=== PATIENT | female | born 1960 | race Caucasian/White ===

== ENCOUNTER 2024-02-12 19:54 | Emergency (ER) | payer MEDICARE, SELFPAY ==
[2024-02-12 20:03] VITALS: BP 179/97
--- NOTE | 2024-02-12 21:26 | ED.GENMED ---
History of Present Illness
General
Chief Complaint: Fall
Time Seen by Provider: 02/12/24 20:51
History of Present Illness
History of Present Illness:
63-year-old female presents the emergency department for evaluation of mild headache and left shoulder pain after mechanical fall at work. Fell onto her left side with positive head strike. She is on Coumadin and full dose aspirin. Denies chest
pain or shortness of breath
Past History
Past History
ED Past Medical History: Asthma, COPD, CVA, HTN, Hypercholesterolemia, Psychiatric and Other
ED Past Surgical History: Other ([place] tooth extraction)
Social History
Tobacco: Former smoker
Alcohol: Daily (wine 1/2 bottle)
Drug: None
Personal:
Living: with family (daughter)
Employment: Employed
Family History
Family History: Other (reviewed and noncontributory)
Review of Systems
Review of Systems
Allergies reviewed?: Yes
All Other Systems: ROS reviewed and negative except as documented in HPI and ROS
Phy Exam
Physical Exam
Physical Exam:
GEN: Well appearing, NAD, WDWN
HEENT: Normocephalic and atraumatic, no midline cervical spine tenderness, normal cervical range of motion bilaterally oral mucosa moist, no scleral icterus
Cardiac: Regular rate
Lung: No respiratory distress, no tachypnea
MSK: No gross deformity or injuries, mild left shoulder bony tenderness, no deformity
Skin: Good color, no pallor or jaundice, no rashes
Neuro: AO x3, moves all extremities freely
Psych: Calm, cooperative
Course
Orders/Labs/Results
Orders:
Orders
02/12/24 20:07
CT Cervical Spine W/o Iv Contr Urgent
Comment:
Reason For Exam: fall
CT Head W/o Iv Contrast Urgent
Comment:
Reason For Exam: fall
02/12/24 21:12
CR Shoulder, Trauma - Left Urgent
Reason For Exam: fall
Vital Signs
Initial and Last Documented VS:
Initial Vital Signs
Temp Pulse Resp BP Pulse Ox
98.1 F 69 14 179/97 99
02/12/24 20:03 02/12/24 20:03 02/12/24 20:03 02/12/24 20:03 02/12/24 20:03
Last Documented Vital Signs
Temp Pulse Resp BP Pulse Ox
98.1 F 69 14 179/97 99
02/12/24 20:03 02/12/24 20:03 02/12/24 20:03 02/12/24 20:03 02/12/24 20:03
MDM/Problems Addressed
MDM/Problems Addressed:
Imaging unremarkable, patient discharged in stable condition
*Critical Care Note
Total Time (30-74mins, 75-104mins- exclusive of procedures): Not Applicable
ED Attending Note
-
Portions of this chart may have been created with voice recognition software.� Occasional wrong word or��sound alike� substitutions may have occurred due to the inherent limitations of voice recognition software.
Discharge Plan
Departure
Patient Disposition: Home (Routine Discharge)
Date of Disposition: 02/12/24
Time of Disposition: 21:26
Patient with high blood pressure during this ER visit?: No
Discharge Problem:
Fall, Contusion of left shoulder
Instructions: Head Injury in Adults (DC)
Prescriptions:
No Action
simvastatin 20 MG tablet
40 mg PO QPM
fluticasone propionate [Flovent HFA] 1 PUFF HFA aerosol inhaler
2 puff inhalation R BID
fluticasone propionate 1 SPRAY spray,suspension
1 spray intranasal DAILY PRN (Reason: Allergies)
metoprolol succinate 50 MG tablet extended release 24 hr
25 mg PO QPM
albuterol sulfate [ProAir HFA] 1 PUFF HFA aerosol inhaler
2 puff inhalation R Q4HPRN PRN (Reason: sob/wheezing)
cholecalciferol (vitamin D3) 2,000 UNITS tablet
See Rx Instructions .ROUTE .COMPLEX
Rx Instructions:
5,000 units orally Friday, Friday, Friday
B complex-vitamin C-folic acid 0.8 mg Tablet
1 tab PO DAILY
vitamin B complex-vit B12
1 dose PO DAILY
lisinopril 5 mg Tablet
5 mg PO DAILY
aspirin 81 MG tablet,delayed release (DR/EC)
325 mg PO DAILY
Referrals:
NONE,* [Family Provider] -
Interventions
Interventions:
*Risk Screen - Suicide Last Done: 02/12/24 20:03
*General Assessment Last Done: 02/12/24 20:03
*Neglect/Abuse Screening Last Done: 02/12/24 20:03
ED- Fall Risk Assessment Last Done: 02/12/24 21:36
*ED COVID-19 Vaccine History Last Done: 02/12/24 20:03
*Nursing Disposition Last Done: 02/12/24 21:36
ED-Musculoskeletal Assessment Last Done: 02/12/24 21:18
ED- Neurological Assessment Last Done: 02/12/24 21:18
ED-Skin Assessment Last Done: 02/12/24 21:18
Discharge Date and Time
Discharge Date/Time: 02/12/24 21:38
Print Language: SINHALA
== END 2024-02-12 21:38 | disposition home or self-care (01) ==
LOC: EMR 19:54
PROVIDERS: EMERGENCY PHYSICIAN Emergency Medicine
DX: S40.012A Contusion of left shoulder, initial encounter (principal); W19.XXXA Unspecified fall, initial encounter; Y99.0 Civilian activity done for income or pay; E78.00 Pure hypercholesterolemia, unspecified; I10 Essential (primary) hypertension; J44.89 Other specified chronic obstructive pulmonary disease; Z86.73 Personal history of transient ischemic attack (TIA), and cerebral infarction without residual deficits; Z79.01 Long term (current) use of anticoagulants; Z79.82 Long term (current) use of aspirin; Z87.891 Personal history of nicotine dependence
CPT/HCPCS: 99284; 70450; 72125; 73030

== ENCOUNTER 2024-02-22 14:36 | Emergency (ER) | payer MEDICARE, SELFPAY ==
[2024-02-22 14:41] VITALS: BP 159/88
[2024-02-22] MEDS: ADACEL 0.5 ML IM (15:35)
[2024-02-22 15:40] LABS: % Basophils 1.2 % (0-2); % Eosinophils 7.1 % (0-6); % Immature Granulocytes 0.4 % (0-0.5); % Lymphocytes 20.5 % (20.5-51.1); % Monocytes 8.3 % (1.7-9.3); % Neutrophils 62.5 % (42.2-75.2); Absolute Basophils 0.1 10^3/uL (0-0.2); Absolute Eosinophils 0.6 10^3/uL (0-0.7); Absolute Lymphocytes 1.7 10^3/uL (1.2-3.4); Absolute Monocytes 0.7 10^3/uL (0.1-0.6); Absolute Neutrophils 5.1 10^3/uL (1.4-6.5); Hematocrit 35.8 % (37.0-47.0); Mean Corp Hgb Conc. 36.3 g/dL (33.0-37.0); Mean Corpuscular Hgb 36.6 pg (27.0-31.0); Mean Corpuscular Volume 100.8 fL (81.0-99.0); Mean Platelet Volume 9.6 fL (7.4-10.4); Nucleated Red Blood Cells % 0 %; Platelet Count 294 10^3/uL (130-400); Red Blood Cell Count 3.55 10^6/uL (4.20-5.40); Red Cell Dist. Width 12.4 % (11.5-14.5); White Blood Cell Count 8.2 10^3/uL (4.8-10.8)
--- NOTE | 2024-02-22 15:48 | ED.GENMED ---
Addendum entered and electronically signed by Americo Morgan MD 02/22/24 22:28:
Patient returned to the emergency room was reassessed by me�tender along the fifth metacarpal, good strong radial pulse and brisk capillary refill in digits. I personally applied an ulnar gutter splint using Ortho-Glass. Postprocedural vascular
exam intact�digits pink and well-perfused. Provided referral to hand surgery (Dr. Hilliard). Provided prescription for pain control for breakthrough pain. Spoke about return precautions all questions answered.
Addendum entered and electronically signed by Americo Morgan MD 02/22/24 20:07:
I received a call from the radiologist on read of the patient's hand x-ray: Positive for fracture at the base of the fifth metacarpal. I called the patient she is still having significant pain in this area. Instructed her to return for splinting.
Original Note:
History of Present Illness
General
Chief Complaint: Head Injury
Source: patient
Exam Limitations: none
Time Seen by Provider: 02/22/24 15:01
History of Present Illness
History of Present Illness:
Patient tripped going into [employer]. Hit her left side of her face left hand and left knee. No LOC. Patient is on Coumadin. Complaining mostly of left knee followed by left hand pain. Mild headache. Very minimal left paracervical pain. No
numbness tingling or weakness. Patient is on Coumadin. Last INR checked months ago.
Past History
Past History
ED Past Medical History: Asthma, COPD, CVA, HTN, Hypercholesterolemia, Psychiatric and Other
ED Past Surgical History: Other ([place] tooth extraction)
Social History
Tobacco: Former smoker
Alcohol: Daily (wine 1/2 bottle)
Drug: None
Personal:
Living: with family (daughter)
Employment: Employed
Family History
Family History: Other (reviewed and noncontributory)
Review of Systems
Review of Systems
All Other Systems: Not applicable
Respiratory: Reports no symptoms
Cardiac: Reports no symptoms
Phy Exam
Physical Exam
Physical Exam:
TRAUMA EXAM:
VITAL SIGNS: Vital signs reviewed, cooperative
DISTRESS: No active disease
EYES: Pupils reactive, no orbital trauma
NOSE: No deformity or epistaxis
FACE AND SCALP: No scalp trauma. Mild contusion to the left forehead
NECK: Supple very minimal left paracervical tenderness. No spinal tenderness
BACK: Back nontender, pelvis stable to compression
RESPIRATORY: No distress, breath sounds normal, no tender chest wall
CARDIAC: No murmur, pulses equal and strong
ABDOMEN: Soft nontender bowel sounds normal
SKIN: Abrasion to the left knee
EXTREMITIES: Tenderness over the left patella. Able to straight leg raise. Knee is stable. Hip stable. Pelvis stable. Right upper and lower extremity normal. Left upper extremity with tenderness of the left hypothenar area. No wrist
tenderness.
NEUROLOGICAL: Alert, oriented, no motor deficits
PSYCH: Mood affect normal
Course
Orders/Labs/Results
Orders:
Orders
02/22/24 14:38
CT Head W/o Iv Contrast Urgent
Comment:
Reason For Exam: head injury on coumadin
02/22/24 15:06
Tetanus/Diphth/Acelpertussis [Adacel] 0.5 ml IM .ONCE ONE
Hand, Left 3 View [CR Hand - Left Min 3 Views] Urgent
Comment:
Reason For Exam: trauma hypothenar
Knee, Left 4 or More Views [CR Knee - Left 4 Or More View*] Urgent
Comment:
Reason For Exam: trauma
02/22/24 15:23
Basic Metabolic Panel Urgent
Complete Blood Count/With Diff Urgent
PTT Urgent
Prothrombin Time Urgent
Abnormal Lab Results
02/22/24
15:23
RBC 3.55 L 10^6/uL
(4.20-5.40)
Hct 35.8 L %
(37.0-47.0)
MCV 100.8 H fL
(81.0-99.0)
MCH 36.6 H pg
(27.0-31.0)
Absolute Monos (auto) 0.7 H 10^3/uL
(0.1-0.6)
Eosinophils % 7.1 H %
(0-6)
BUN 19 H mg/dl
(7-17)
Glucose 110 H mg/dl
(70-99)
02/22/24 15:23
02/22/24 15:23
Vital Signs
Initial and Last Documented VS:
Initial Vital Signs
Temp Pulse Resp BP Pulse Ox
98.3 F 70 16 159/88 95
02/22/24 14:41 02/22/24 14:41 02/22/24 14:41 02/22/24 14:41 02/22/24 14:41
Last Documented Vital Signs
Temp Pulse Resp BP Pulse Ox
98.3 F 70 16 157/86 95
02/22/24 14:41 02/22/24 14:41 02/22/24 14:41 02/22/24 17:00 02/22/24 14:41
MDM/Problems Addressed
Differential Diagnosis Includes:
Head injury. Anticoagulated. CT negative. Await INR. Other injuries likely all contusion/abrasions. X-rays pending. Very low suspicion for cervical injury. Very minimal left paracervical tenderness. Will hold on CT of the cervical spine
*Radiology
Radiology exam reviewed: preliminary read by ED provider (Negative x-rays) and radiology read reviewed (Negative CT)
*Pulse Oximetry
Patient hypoxic: no
*Critical Care Note
Total Time (30-74mins, 75-104mins- exclusive of procedures): Not Applicable
Update Note
Update Note:
Medically stable and nontoxic. Discharged to follow-up.
ED Attending Note
-
Portions of this chart may have been created with voice recognition software.� Occasional wrong word or��sound alike� substitutions may have occurred due to the inherent limitations of voice recognition software.
Discharge Plan
Departure
Patient Disposition: Home (Routine Discharge)
Date of Disposition: 02/22/24
Time of Disposition: 17:09
Patient with high blood pressure during this ER visit?: Yes
Discharge Problem:
Head injury/anticoagulated
Instructions: Head Injury in Adults (DC), Contusion (DC), Abrasions ED, BLOOD PRESSURE
Prescriptions:
No Action
simvastatin 20 MG tablet
40 mg PO QPM
fluticasone propionate [Flovent HFA] 1 PUFF HFA aerosol inhaler
2 puff inhalation R BID
fluticasone propionate 1 SPRAY spray,suspension
1 spray intranasal DAILY PRN (Reason: Allergies)
metoprolol succinate 50 MG tablet extended release 24 hr
25 mg PO QPM
albuterol sulfate [ProAir HFA] 1 PUFF HFA aerosol inhaler
2 puff inhalation R Q4HPRN PRN (Reason: sob/wheezing)
cholecalciferol (vitamin D3) 2,000 UNITS tablet
See Rx Instructions .ROUTE .COMPLEX
Rx Instructions:
5,000 units orally Friday, Friday, Friday
B complex-vitamin C-folic acid 0.8 mg Tablet
1 tab PO DAILY
vitamin B complex-vit B12
1 dose PO DAILY
lisinopril 5 mg Tablet
5 mg PO DAILY
aspirin 81 MG tablet,delayed release (DR/EC)
325 mg PO DAILY
Referrals:
Dolores Morrison NP [Family Provider] - Follow up in 2-3 days
Activity Restrictions/Additional Instructions:
Your INR is low. It may require adjustments.
INR= 0.95
Interventions
Interventions:
*Risk Screen - Suicide Last Done: 02/22/24 16:16
*General Assessment Last Done: 02/22/24 16:16
*Neglect/Abuse Screening Last Done: 02/22/24 16:16
ED- Fall Risk Assessment Last Done: 02/22/24 16:16
*ED COVID-19 Vaccine History Last Done: 02/22/24 16:16
ED- Neurological Assessment Last Done: 02/22/24 16:16
ED-Skin Assessment Last Done: 02/22/24 16:16
Discharge Date and Time
Print Language: YEMENI
[2024-02-22 15:52] LABS: INR 0.95; PT 12.5 Sec (11.4-14.6)
[2024-02-22 15:53] LABS: APTT 26.7 Sec (23.4-35.0)
[2024-02-22 16:01] LABS: Blood Urea Nitrogen 19 mg/dl (7-17); Calcium 10.2 mg/dl (8.4-10.2); Carbon Dioxide 27 mmol/L (22-30); Chloride 105 mmol/L (98-107); Glucose 110 mg/dl (70-99); Potassium 3.8 mmol/L (3.5-5.1); Sodium 143 mmol/L (135-145); eGFR > 60.00
[2024-02-22 17:00] VITALS: BP 157/86
== END 2024-02-22 17:31 | disposition home or self-care (01) ==
LOC: EMR 14:36
PROVIDERS: EMERGENCY PHYSICIAN Emergency Medicine; FAMILY PHYSICIAN Nurse Practitioner Adult Health
DX: S62.317A Displaced fracture of base of fifth metacarpal bone, left hand, initial encounter for closed fracture (principal); S09.90XA Unspecified injury of head, initial encounter; S80.212A Abrasion, left knee, initial encounter; S00.83XA Contusion of other part of head, initial encounter; W01.0XXA Fall on same level from slipping, tripping and stumbling without subsequent striking against object, initial encounter; Y93.01 Activity, walking, marching and hiking; Y92.512 Supermarket, store or market as the place of occurrence of the external cause; Z23 Encounter for immunization; I10 Essential (primary) hypertension; E78.00 Pure hypercholesterolemia, unspecified; J44.89 Other specified chronic obstructive pulmonary disease; Z79.01 Long term (current) use of anticoagulants; Z87.891 Personal history of nicotine dependence; Z91.018 Allergy to other foods; Z91.048 Other nonmedicinal substance allergy status
CPT/HCPCS: 99284; 29125; 90471; 70450; 73130; 73564; 80048; 85025; 85610; 85730; 90715

== ENCOUNTER 2024-02-26 14:39 | Emergency (ER) | payer SELFPAY ==
[2024-02-26 14:52] VITALS: BP 156/90
--- NOTE | 2024-02-26 15:26 | ED.GENMED ---
History of Present Illness
General
Chief Complaint: Fall
Source: patient
Exam Limitations: none
Time Seen by Provider: 02/26/24 15:11
History of Present Illness
History of Present Illness:
Patient was here 4 days ago after a fall. However complaining of ongoing left rib pain. Patient does have a fracture of the fifth met a carpal. Splint is in place. Chest pain is sharp mildly worse with breathing no abdominal pain no other
complaint
Past History
Past History
ED Past Medical History: Asthma, COPD, CVA, HTN, Hypercholesterolemia, Psychiatric and Other
ED Past Surgical History: Other ([place] tooth extraction)
Social History
Tobacco: Former smoker
Alcohol: Daily (wine 1/2 bottle)
Drug: None
Personal:
Living: with family (daughter)
Employment: Employed
Family History
Family History: Other (reviewed and noncontributory)
Phy Exam
Physical Exam
Physical Exam:
GENERAL: Alert and oriented in no apparent distress. Splint to the left wrist and hand
EYE: Orbits normal.
NECK: Supple, nontender
CARDIAC: Regular rate and rhythm without any obvious murmurs.
LUNGS: Clear breath sounds,normal. Mild posterior chest wall tenderness. No crepitus no ecchymosis. No spinal tenderness
ABDOMEN: Soft, without focal tenderness or distention
NEUROLOGICAL: Alert and oriented , grossly non-focal
SKIN: Warm and dry
PSYCH: Normal and appropriate interaction.
Course
Orders/Labs/Results
Orders:
Orders
02/26/24 14:41
CR Ribs-left 3 Vw W/pa Chest Urgent
Comment:
Reason For Exam: fall
Vital Signs
Initial and Last Documented VS:
Initial Vital Signs
Temp Pulse Resp BP Pulse Ox
98.0 F 79 16 156/90 98
02/26/24 14:52 02/26/24 14:52 02/26/24 14:52 02/26/24 14:52 02/26/24 14:52
Last Documented Vital Signs
Temp Pulse Resp BP Pulse Ox
98.0 F 79 16 156/90 98
02/26/24 14:52 02/26/24 14:52 02/26/24 14:52 02/26/24 14:52 02/26/24 14:52
*Radiology
Radiology exam reviewed: preliminary read by ED provider (Negative)
*Pulse Oximetry
Patient hypoxic: no
*Critical Care Note
Total Time (30-74mins, 75-104mins- exclusive of procedures): Not Applicable
Update Note
Update Note:
Patient stable and nontoxic. Benign abdomen. No spleen palpable or tender. No crepitus. Breath sounds equal. No pneumothorax by x-ray. No obvious rib fracture. Symptomatic treatment and follow-up. I did explain there could be an fracture
that does not necessarily show up on x-ray
ED Attending Note
-
Portions of this chart may have been created with voice recognition software.� Occasional wrong word or��sound alike� substitutions may have occurred due to the inherent limitations of voice recognition software.
Discharge Plan
Departure
Patient Disposition: Home (Routine Discharge)
Date of Disposition: 02/26/24
Time of Disposition: 15:28
Patient with high blood pressure during this ER visit?: Yes
Discharge Problem:
Blunt chest trauma
Instructions: Blunt Chest Trauma (DC), BLOOD PRESSURE
Prescriptions:
No Action
simvastatin 20 MG tablet
40 mg PO QPM
fluticasone propionate [Flovent HFA] 1 PUFF HFA aerosol inhaler
2 puff inhalation R BID
fluticasone propionate 1 SPRAY spray,suspension
1 spray intranasal DAILY PRN (Reason: Allergies)
metoprolol succinate 50 MG tablet extended release 24 hr
25 mg PO QPM
albuterol sulfate [ProAir HFA] 1 PUFF HFA aerosol inhaler
2 puff inhalation R Q4HPRN PRN (Reason: sob/wheezing)
cholecalciferol (vitamin D3) 2,000 UNITS tablet
See Rx Instructions .ROUTE .COMPLEX
Rx Instructions:
5,000 units orally Friday, Friday, Friday
B complex-vitamin C-folic acid 0.8 mg Tablet
1 tab PO DAILY
vitamin B complex-vit B12
1 dose PO DAILY
lisinopril 5 mg Tablet
5 mg PO DAILY
aspirin 81 MG tablet,delayed release (DR/EC)
325 mg PO DAILY
oxycodone 5 mg tablet
5 mg PO TID PRN (Reason: Pain) Qty: 10 0RF
Referrals:
NONE,* [Family Provider] -
Activity Restrictions/Additional Instructions:
Follow-up with your primary physician
Return with increased or persistent pain shortness of breath abdominal pain or any other concerning symptoms
Interventions
Interventions:
*Risk Screen - Suicide Last Done: 02/26/24 14:52
*Neglect/Abuse Screening Last Done: 02/26/24 14:52
Discharge Date and Time
Print Language: MAORI
== END 2024-02-26 15:40 | disposition home or self-care (01) ==
LOC: EMR 14:39
PROVIDERS: EMERGENCY PHYSICIAN Emergency Medicine
DX: S29.9XXA Unspecified injury of thorax, initial encounter (principal); W19.XXXA Unspecified fall, initial encounter; I10 Essential (primary) hypertension; Z87.891 Personal history of nicotine dependence
CPT/HCPCS: 99283; 71101

== ENCOUNTER → 2024-03-11 12:25 | Outpatient (REF) | payer MEDICAID, OTHER, SELFPAY | LOC: CLINIC 12:25 | PROVIDERS: ATTENDING PHYSICIAN Surgery Vascular Surgery; FAMILY PHYSICIAN Nurse Practitioner Adult Health | DX: I77.71 Dissection of carotid artery (principal) | CPT/HCPCS: 70496; 70498; Q9967 ==

== ENCOUNTER 2025-05-01 16:38 | Emergency (ER) | payer OTHER, SELFPAY ==
[2025-05-01 16:43] VITALS: BP 152/104
--- NOTE | 2025-05-01 17:06 | ED.GENMED ---
History of Present Illness
General
Chief Complaint: Blood Pressure Problem
Source: patient
Exam Limitations: none
Time Seen by Provider: 05/01/25 16:46
History of Present Illness
History of Present Illness:
64yoF with a history of hypertension, hyperlipidemia, left carotid dissection initially diagnosed in 2022, and asthma presenting for evaluation of a headache. Patient lost her health insurance and ran out of her blood pressure medications. She
typically takes lisinopril 10 mg daily, metoprolol 25 mg daily, and simvastatin 40 mg daily. She ran out of the lisinopril about 3 months ago and the metoprolol 3 weeks ago. She has been feeling unwell for the past 2 to 3 weeks. She was at her
friend's house this afternoon when she developed pain in the back of her neck which radiated to the top of the head and into the frontal region. She also had a stabbing sensation in her right eye and felt 'cloudy.' This began at 1pm. She checked
her blood pressure with her friends BP cuff which was elevated at 160/110. She decided to come to the ED for evaluation. Her headache is currently improved and is now rated as a 6 out of 10 in severity. She denies any visual changes, chest pain,
shortness of breath. Her carotid dissection was managed medically and she is maintained on 235mg aspirin daily.
Past History
Past History
ED Past Medical History: Asthma, COPD, CVA, HTN, Hypercholesterolemia, Psychiatric and Other
ED Past Surgical History: Other ([place] tooth extraction)
Social History
Tobacco: Former smoker
Alcohol: Daily (wine 1/2 bottle)
Drug: None
Personal:
Living: with family (daughter)
Employment: Employed
Family History
Family History: Other (reviewed and noncontributory)
Phy Exam
General Physical Exam
General Presentation: well appearing and no apparent distress
General Skin: warm and dry
General Habitus: normal
General Mental: alert
ENT Exam
ENT Exam: normocephalic
Eye Exam
Eye Exam: PERRL and conjunctiva normal
Cardiovascular Exam
Cardiovascular Exam: regular rate/rhythm, no edema and no murmur
Pulmonary Exam
Pulmonary Exam: lungs clear, no respiratory distress, no rales, no crackles, no rhonchi and no wheezing
Neurological Exam
Neurological Exam: alert, no motor deficits and speech normal
Jhonathan Coma Scale
Eye Opening: Spontaneous
Verbal Response: Oriented
Motor Response: Obeys Commands
GCS Total Score: 15
Skin Exam
Skin Exam: normal color and warm/dry
Psychiatric Exam
Psychiatric Exam: anxious (tearful at times)
Course
Orders/Labs/Results
Orders:
Orders
05/01/25 16:44
EKG [Electrocardiogram (*1)] Urgent
Reason for Study: Hypertension, Benign
EKG- Treatment ONCE
05/01/25 17:09
CT Head & Neck Angio W/wo IV Urgent
Comment:
Reason For Exam: posterior neck pain, AGUIRRE, hx L carotid dissection
05/01/25 17:10
Cardiac Monitoring- Treatment ONCE
05/01/25 17:34
Lisinopril [Zestril] 10 mg PO NOW STA
Metoprolol Xl [Toprol Xl] 25 mg PO NOW STA
05/01/25 17:48
CRP [C-Reactive Protein] Urgent
Complete Blood Count/With Diff Urgent
Comprehensive Metabolic Panel Urgent
ESR [Erythrocyte Sed Rate] Urgent
Abnormal Lab Results
05/01/25
17:48
RBC 3.77 L 10^6/uL
(4.20-5.40)
MCV 99.7 H fL
(81.0-99.0)
MCH 35.8 H pg
(27.0-31.0)
Neutrophils % 40.8 L %
(42.2-75.2)
05/01/25 17:48
05/01/25 17:48
Vital Signs
Initial and Last Documented VS:
Initial Vital Signs
Temp Pulse Resp BP Pulse Ox
98.0 F 133 18 152/104 99
05/01/25 16:43 05/01/25 16:43 05/01/25 16:43 05/01/25 16:43 05/01/25 16:43
Last Documented Vital Signs
Temp Pulse Resp BP Pulse Ox
98.0 F 71 18 138/85 96
05/01/25 16:43 05/01/25 19:57 05/01/25 19:57 05/01/25 19:57 05/01/25 19:57
MDM/Problems Addressed
Differential Diagnosis Includes:
64yoF here with neck pain and headache that began this afternoon. Has been off BP meds for a few weeks due to insurance issue. Hx of known L carotid dissection dating back to 2022. BP 152/104 in triage. Patient well appearing on exam. She is awake,
alert, with a GCS of 15. No focal neuro deficits noted. Differential diagnosis includes: tension headache, migraine, temporal arteritis, intracranial hemorrhage, consider symptomatic carotid dissection although less likely
Initial ED plan: Check CBC, CMP, ESR/CRP, EKG, and CTA head/neck. Will give dose of home BP meds and reassess.
*Pulse Oximetry
SaO2: 99
Oxygen Mode of Delivery: Room air
Patient hypoxic: no
*EKG
Interpreted by ED Provider?: Yes
EKG Intrepretation Date: 05/01/25
Heart Rate: 97
Rate: normal
Rhythm: sinus
[place]: normal axis
Interval: normal interval
QRS Pattern: normal QRS
Ischemia: no ischemia
*Critical Care Note
Total Time (30-74mins, 75-104mins- exclusive of procedures): Not Applicable
Update Note
Update Note:
EKG shows normal sinus rhythm without ischemic changes. Labs unremarkable including normal renal function. ESR/CRP normal making temporal arteritis highly unlikely. CTA head shows stable short segment vessel irregularity involving the left
internal carotid artery likely representing chronic localized dissection. No other acute findings on imaging. Blood pressure improved to 138/85. She is feeling significantly improved on reassessment. No indication for hospitalization. Patient
is set to obtain health insurance starting next month. Will provide 1 month refill for her home meds to hold her over until this happens. ED return precautions reviewed. Patient in agreement with plan and was discharged in stable condition.
ED Attending Note
-
Portions of this chart may have been created with voice recognition software.� Occasional wrong word or��sound alike� substitutions may have occurred due to the inherent limitations of voice recognition software.
Discharge Plan
Departure
Patient Disposition: Home (Routine Discharge)
Date of Disposition: 05/01/25
Time of Disposition: 19:41
Patient with high blood pressure during this ER visit?: Yes
Discharge Problem:
Acute headache, Hypertension
Instructions: High Blood Pressure (DC)
Prescriptions:
New
lisinopril 10 mg tablet
10 mg PO DAILY Qty: 30 0RF
simvastatin 40 mg tablet
40 mg PO QPM Qty: 30 0RF
metoprolol succinate 25 mg tablet extended release 24 hr
25 mg PO DAILY Qty: 30 0RF
No Action
simvastatin 20 MG tablet
40 mg PO QPM
fluticasone propionate [Flovent HFA] 1 PUFF HFA aerosol inhaler
2 puff inhalation R BID
fluticasone propionate 1 SPRAY spray,suspension
1 spray intranasal DAILY PRN (Reason: Allergies)
metoprolol succinate 50 MG tablet extended release 24 hr
25 mg PO QPM
albuterol sulfate [ProAir HFA] 1 PUFF HFA aerosol inhaler
2 puff inhalation R Q4HPRN PRN (Reason: sob/wheezing)
cholecalciferol (vitamin D3) 2,000 UNITS tablet
See Rx Instructions .ROUTE .COMPLEX
Rx Instructions:
5,000 units orally Friday, Friday, Friday
B complex-vitamin C-folic acid 0.8 mg Tablet
1 tab PO DAILY
vitamin B complex-vit B12
1 dose PO DAILY
lisinopril 5 mg Tablet
5 mg PO DAILY
aspirin 81 MG tablet,delayed release (DR/EC)
325 mg PO DAILY
oxycodone 5 mg tablet
5 mg PO TID PRN (Reason: Pain) Qty: 10 0RF
Referrals:
[facility] [Provider Group]
[facility] [Outside]
UNKNOWN - PT DOES,NOT KNOW [Family Provider]
Activity Restrictions/Additional Instructions:
A 30-day supply of metoprolol, lisinopril, and simvastatin were sent to your pharmacy.
Please follow-up with your family doctor. Return to the ER immediately with any new or worsening symptoms.
Interventions
Interventions:
*Risk Screen - Suicide Last Done: 05/01/25 16:42
*General Assessment Last Done: 05/01/25 16:42
*Neglect/Abuse Screening Last Done: 05/01/25 16:42
*ED COVID-19 Vaccine History Last Done: 05/01/25 16:42
*ED Influenza Vaccine History Last Done: 05/01/25 16:42
[facility] Risk Assessment Tool Last Done: 05/01/25 18:06
*Nursing Disposition Last Done: 05/01/25 20:21
ED- Cardiac Assessment Last Done: 05/01/25 18:08
ED- Neurological Assessment Last Done: 05/01/25 18:08
ED- Pulmonary Assessment Last Done: 05/01/25 18:08
Discharge Date and Time
Discharge Date/Time: 05/01/25 20:23
Print Language: YEMENI
[2025-05-01] MEDS: ZESTRIL 10 MG PO (17:55)
[2025-05-01] MEDS: TOPROL XL 25 MG PO (17:56)
[2025-05-01 18:02] LABS: Hematocrit 37.6 % (37.0-47.0); Hemoglobin 13.5 g/dL (12.0-16.0); Mean Corp Hgb Conc. 35.9 g/dL (33.0-37.0); Mean Corpuscular Volume 99.7 fL (81.0-99.0); Nucleated Red Blood Cells % 0 %; Platelet Count 282 10^3/uL (130-400); Red Cell Dist. Width 13.3 % (11.5-14.5)
[2025-05-01 18:04] VITALS: BMI 23.3
[2025-05-01 18:06] VITALS: BP 145/86
[2025-05-01 18:19] LABS: ALT (SGPT) 21 U/L (0-35); AST (SGOT) 32 U/L (14-36); Albumin 4.5 g/dl (3.5-5.0); Alkaline Phosphatase 74 U/L (38-126); Blood Urea Nitrogen 13 mg/dl (7-17); Calcium 9.3 mg/dl (8.4-10.2); Carbon Dioxide 22 mmol/L (22-30); Chloride 107 mmol/L (98-107); Estimated Creatinine Clearance 54 ml/min; Glucose 85 mg/dl (70-99); Potassium 4.2 mmol/L (3.5-5.1); Sodium 139 mmol/L (135-145); Total Protein 7.3 g/dl (6.3-8.2); eGFR > 60.00
[2025-05-01 18:22] LABS: C-Reactive Protein < 5.00 mg/L (0.0-10.00)
[2025-05-01 18:30] VITALS: BP 141/85
[2025-05-01 19:00] VITALS: BP 143/101
[2025-05-01 19:57] VITALS: BP 138/85
== END 2025-05-01 20:23 | disposition home or self-care (01) ==
LOC: EMR 16:38
PROVIDERS: Physician Assistant; EMERGENCY PHYSICIAN Emergency Medicine
DX: R51.9 Headache, unspecified (principal); I10 Essential (primary) hypertension; E78.00 Pure hypercholesterolemia, unspecified; J44.89 Other specified chronic obstructive pulmonary disease; Z86.73 Personal history of transient ischemic attack (TIA), and cerebral infarction without residual deficits; Z87.891 Personal history of nicotine dependence; Z59.71 Insufficient health insurance coverage; Z79.899 Other long term (current) drug therapy; Z79.82 Long term (current) use of aspirin
CPT/HCPCS: 99284; 70496; 70498; 80053; 85025; 85652; 86140; 93005; Q9967